=== PATIENT | male | born 1985 | race Caucasian/White ===

== ENCOUNTER 2023-09-27 14:05 | Observation (INO) ==
[2023-09-27 14:38] LABS: Basophils # (auto) 0.03 K/uL (0.00-0.20); Basophils % (auto) 0.3 %; Eosinophils # (auto) 0.05 K/uL (0.00-0.50); Eosinophils % (auto) 0.5 %; Hemoglobin 9.7 g/dl (14.0-18.0); Immature Granulocytes # (auto) 0.04 K/uL (0.01-0.20); Immature Granulocytes % (auto) 0.4 %; Lymphocytes # (auto) 1.57 K/uL (1.20-3.40); Lymphocytes % (auto) 17.3 %; Mean Corpuscular Hemoglobin 24.4 pg (25.0-34.0); Mean Corpuscular Hgb Conc 31.3 g/dL (32.0-36.0); Mean Corpuscular Volume 77.9 fL (80.0-100.0); Mean Platelet Volume 10.1 fL (9.4-12.4); Monocytes # (auto) 1.08 K/uL (0.11-0.59); Monocytes % (auto) 11.9 %; Neutrophils # (auto) 6.33 K/uL (1.40-6.50); Neutrophils % (auto) 69.6 %; Platelet Count 354 K/uL (130-400); RDW Standard Deviation 44.3 fL (36.4-46.3); Red Blood Count 3.98 M/uL (4.70-6.10)
[2023-09-27] MEDS ORDERED: LORazepam 3 MG in SYRINGE 1.5 ML IV PRN ×2 (14:50→20:04)
[2023-09-27] MEDS ORDERED: LORazepam 2 MG in SYRINGE 1 ML IV PRN ×2 (14:50→20:04)
[2023-09-27] MEDS ORDERED: LORazepam 1 MG in SYRINGE 0.5 ML IV PRN (14:50)
[2023-09-27] MEDS ORDERED: Ativan IV Alcohol Withdrawal--Active Protocol IV PRN ×2 (14:50→20:04)
[2023-09-27] MEDS: LORazepam 1 MG/1 ML SYR ED Inj Use IV STA ×2 (14:54→14:57)
[2023-09-27] MEDS: lisinopril 10 MG TAB PO STA (14:54)
[2023-09-27 14:55] LABS: Albumin Globulin Ratio 1.1 (0.9-2); Albumin Level 4.5 gm/dl (3.4-5.0); BUN Creatinine Ratio 20.9 (10-20); Calcium 9.7 mg/dl (8.6-10.3); Creatinine Clr Calc Pharmacy 106.5 ml/min; Est GFR (African American) 123.5 ml/min; Est GFR (Non-African American) 106.5 ml/min; Globulin 4.1 gm/dl (2.5-4.0); Potassium 4.1 mmol/L (3.5-5.1); Total Protein 8.6 gm/dl (6.0-8.3)
[2023-09-27 15:01] LABS: Troponin I High Sensitivity 3.2 pg/ml (0-20)
[2023-09-27] MEDS: PANTOprazole 40 MG TAB PO STA (15:10)
[2023-09-27] MEDS: MULTI-VITAMIN INFUSION 10 ML, THIAMINE HCL 100 MG, FOLIC ACID 1 MG in SODIUM CHLORIDE 0... IV ONE (15:10)
--- NOTE | 2023-09-27 15:20 | XRay Report ---
XR chest 1V portable HISTORY: 38 years-old Male Chest pain, nonspecific COMPARISON: None TECHNIQUE: AP view of the chest FINDINGS: Cardiac silhouette is upper limits of normal in size. Patchy multifocal right lung airspace opacities . No pneumothorax, pleural effusion or pulmonary edema. Lungs appear intact. IMPRESSION: Multifocal pneumonia of the right lung. ACT 112: Negative or not required by law. The above report was generated using voice recognition software. It may contain grammatical, syntax o r spelling errors. Electronically signed by: Gavino Herman M.D. 09/27/2023 3:18 PM
--- NOTE | 2023-09-27 15:40 | Electrocardiogram Report ---
Test Reason : Blood Pressure : / mmHG Vent. Rate : 109 BPM Atrial Rate : 109 BPM P-R Int : 116 ms QRS Dur : 076 ms QT Int : 320 ms P-R-T Axes : 014 025 020 degrees QTc Int : 430 ms Sinus tachycardia Nonspecific T wave abnormality Abnormal ECG No previous ECGs available Confirmed by Corey Rae ([id number]) on 09/27/2023 3:39:41 PM Referred By: REFERRED SELF Confirmed By:Corey Rae
[2023-09-27] MEDS: OPTIRAY 320 125ml IV ONE (16:39)
--- NOTE | 2023-09-27 17:03 | CT Scan Report ---
CT angio chest PE protocol CLINICAL HISTORY: multifocal PNA on XR, tachy and HTN, no fever/cough TECHNIQUE: Multidetector row helical CT of the chest was performed with angiographic protocol. Patel l and sagittal reformations were obtained. Coronal and sagittal MIPS were obtained from the axial ana a set and were submitted for review. Automated dose lowering techniques and/or adjustment according to patient size were utilized for this exam. CT DOSE: 804.17 mGy.cm Comparison: Comparison is made to chest radiograph 09/27/2023 FINDINGS: Lungs and pleura: Multifocal airspace opacities are most prominent in the right upper lobe. Heart and pericardium: Heart size is normal. No pericardial effusion. Vessels: Evaluation for pulmonary embolism is limited due to suboptimal contrast timing. No evidence of central, lobar, or segmental embolus. Mediastinum and val: Subcentimeter lymph nodes are seen. Chest wall and lower neck: Unremarkable. Abdomen: Hepatic steatosis is noted. A hiatal hernia is seen. Bones: Unremarkable. IMPRESSION: 1. Multifocal pneumonia is seen with reactive lymph nodes. 2. No evidence of pulmonary embolus. 3. Hiatal hernia. ACT 112: Negative or not required by law. Electronically signed by: Anton Segovia M.D. 09/27/2023 5:01 PM
--- NOTE | 2023-09-27 17:58 | History & Physical Report ---
Date of Service September 27, 2023 Assessment & Plan (1) Pneumonia: (2) Chest pain: (3) Alcohol withdrawal: Plan Pt is a 38yoM with PMHx significant for HTN, GERD presenting for further evaluation of right sided chest pain. Chest Pain, right RUL Pneumonia Sepsis, POA EKG noting sinus tachycardia trop x1 wnl, continue trend Tachycardic and tachypneic on admission Biofire pending Chest XRAY noting R sided multifocal pneumonia CTA chest confirming the same, no noted PE Blood Cx x2 pending lactate and procal wnl Continue Cefepime and Flagyl (pt unsure if he could have thrown up recently or passed out after drinking causing aspiration, see below) pt with amoxicillin allergy and doesn't remember the reaction Possible Alcohol withdrawal Pt notes vague Hx of alcohol use, states can be 10-12 drinks a day States last drink likely earlier this week Tachycardic, tachypneic, hypertensive on admission AWSS with active protocol with gabapentin and Ativan Continue to monitor on telemetry Continue other home meds as ordered Diet:HH DVT prophylaxis: Lovenox SQ Dispo: PCU/tele History of Present Illness Chief Complaint: Chest Pain Primary Care Provider: Ronal Sofia DO Pt is a 38yoM with PMHx significant for HTN, GERD presenting for further evaluation of right sided chest pain. History obtained from patient. and 2 children present at bedside. States that he started having right sided chest pain that would just not go away today. States he looked things up online (WebMD) and decided to come in to have it looked into further. States the nature of the pain can vary based on position. Sometimes worse with deep breaths. Denies fevers, chills or night sweats. Denies sick contacts, states the kids have not had recent illnesses. Notes a Hx of HTN for which he is on medication. States HTN runs in the family but no other significant cardiac Hx that he could think of. States that he stopped smoking when his was with his first child, about 6 years ago. States he does drink alcohol but the amount varies. Can drink quite a bit on one day (like 12 drinks) or none at all. When asked when his last drink was, he paused and thought about it for some before stating "earlier this week". Later when advised that he was in the range of 3-5 days for alcohol withdrawal symptoms, he stated that his last drink was last night or yesterday. He denies recent aspiration or N/V or passing out. Allergies Allergy/AdvReac Type Severity Reaction Status Date / Time amoxicillin Allergy Unknown "doesnt Unverified 09/27/23 17:23 remember. Was a child" Home Medications Medication Instructions Recorded Confirmed Type Vitamin 2 gummy PO PM 09/27/23 09/27/23 History lisinopril 10 mg tablet 20 mg PO PM 09/27/23 09/27/23 History loratadine 10 mg tablet (Claritin) 10 mg PO DAILY PRN Allergy Symptoms 09/27/23 09/27/23 History montelukast 10 mg tablet 10 mg PO PM 09/27/23 09/27/23 History omeprazole 20 mg tablet,delayed 20 mg PO .MID AFTERNOON 09/27/23 09/27/23 History release sertraline 50 mg tablet 50 mg PO PM 09/27/23 09/27/23 History Past Med/Surg History Problem List (Updated 09/27/23 @ 19:32 by Daisy Cherry MD) Alcohol withdrawal Chest pain Pneumonia Unwanted fertility Allergic reaction to insect sting (Acute) Allergic reaction to insect sting (Acute) Social History Smoking Status: Former smoker Feels Safe at Home: Yes Review of Systems Review of Systems: All systems reviewed & are unremarkable except as noted in Subjective Physical Exam Physical Exam: General: Alert, oriented. No acute distress Skin: No noted rashes or bruises Psych: Appropriate mood and affect Neuro: No gross deficits, slight tremor in hands with arms outstretched bilaterally HEENT: NC/AT CV: regular HR Resp: Breath sounds clear bilaterally, no increased effort of breathing. Abdomen: Soft, nontender, nondistended. Extremities: No edema in lower extremities bilaterally. Results & Data Results & Data Vital Signs (Past 12 Hours) Vital Signs Temp Pulse Pulse Resp BP BP Pulse Ox 09/27/23 15:00 96 09/27/23 15:00 107 H 26 H 166/108 H 96 09/27/23 15:00 96 09/27/23 14:29 105 H 09/27/23 14:10 36.5 C 107 H 18 191/122 H 95 O2 Del Method 09/27/23 15:00 Room Air 09/27/23 15:00 Room Air 09/27/23 15:00 Room Air 09/27/23 14:29 09/27/23 14:10 Room Air Diagnostic Findings Chest X-Ray 09/27/23 14:13 XR chest 1V portable HISTORY: 38 years-old Male Chest pain, nonspecific COMPARISON: None TECHNIQUE: AP view of the chest FINDINGS: Cardiac silhouette is upper limits of normal in size. Patchy multifocal right lung airspace opacities. No pneumothorax, pleural effusion or pulmonary edema. Lungs appear intact. IMPRESSION: Multifocal pneumonia of the right lung. ACT 112: Negative or not required by law. The above report was generated using voice recognition software. It may contain grammatical, syntax or spelling errors. Electronically signed by: Gavino Herman M.D. 09/27/2023 3:18 PM Chest CTA 09/27/23 16:21 CT angio chest PE protocol CLINICAL HISTORY: multifocal PNA on XR, tachy and HTN, no fever/cough TECHNIQUE: Multidetector row helical CT of the chest was performed with angiographic protocol. Coronal and sagittal reformations were obtained. Coronal and sagittal MIPS were obtained from the axial data set and were submitted for review. Automated dose lowering techniques and/or adjustment according to patient size were utilized for this exam. CT DOSE: 804.17 mGy.cm Comparison: Comparison is made to chest radiograph 09/27/2023 FINDINGS: Lungs and pleura: Multifocal airspace opacities are most prominent in the right upper lobe. Heart and pericardium: Heart size is normal. No pericardial effusion. Vessels: Evaluation for pulmonary embolism is limited due to suboptimal contrast timing. No evidence of central, lobar, or segmental embolus. Mediastinum and vla: Subcentimeter lymph nodes are seen. Chest wall and lower neck: Unremarkable. Abdomen: Hepatic steatosis is noted. A hiatal hernia is seen. Bones: Unremarkable. IMPRESSION: 1. Multifocal pneumonia is seen with reactive lymph nodes. 2. No evidence of pulmonary embolus. 3. Hiatal hernia. ACT 112: Negative or not required by law. Electronically signed by: Anton Segovia M.D. 09/27/2023 5:01 PM
[2023-09-27] MEDS: AMPICILLIN/SULBACTAM SOD 3,000 MG in SODIUM CHLOR 0.9% MINI-B 100 ML IV SCH (19:20)
[2023-09-27] MEDS ORDERED: GABAPENTIN 600MG ALCOHOL WITHDRAWAL LOAD PO STA (20:04)
--- NOTE | 2023-09-27 20:19 | Emergency Department Note ---
Impression & Plan Pneumonia, Chest pain, Alcohol withdrawal ED Provider Note CHIEF COMPLAINT: Chest pain HISTORY OF PRESENT ILLNESS: This 38-year-old male patient past medical history of alcohol dependency presents to the emergency department with complaints of midsternal to left-sided chest pain. The patient patient admits to drinking 10 shots of rum a night on "heavy nights." He states he has been taking lisinopril for high blood pressure, but may have missed it a few times. He does not believe he took it today. Patient is also on sertraline and omeprazole. He states he does not like to see the doctor, he "actively avoids it." He does not believe that he is in alcohol withdrawal currently, he states he normally would start drinking about 6:30 in the evening. REVIEW OF SYSTEMS: A review of systems was performed with positives and pertinent negatives listed in the history of present illness. 10 systems were reviewed and are otherwise negative. ALLERGIES: see below MEDICATIONS: see below PMH: see below SOCIAL HISTORY: see below DDx: Alcohol intoxication, withdrawal, electrolyte abnormality, dehydration, acute coronary syndrome, gastritis, peptic ulcer disease, among others. PHYSICAL EXAM: Vital signs reviewed. General: Well-appearing but anxious 38-year-old male, in no significant distress. HEENT: No scleral icterus, PERRLA, neck supple. Moist mucous membranes. Cardiovascular: Regular rate and rhythm, no extra sounds. Pulmonary: Clear to auscultation bilaterally, normal work of breathing. Abdomen: Soft, nontender, nondistended, positive bowel sounds. Musculoskeletal: Atraumatic, no peripheral edema. Neurologic: Patient awake alert and oriented x 3, speech is clear Skin: Warm, dry, no rash EMERGENCY DEPARTMENT COURSE/MDM: This patient was evaluated and appeared to be in no significant distress. IV access was obtained and laboratory work was drawn. The patient was placed on the panel monitor and noted to be tachycardic and hypertensive. He was given 2 mg of IV Ativan. IV banana bag was ordered. The patient's chest x-ray is significant for multifocal right- sided pneumonia. Patient is not presenting with pneumonia typical symptoms, therefore CT imaging of the chest was performed and confirms multifocal pneumonia. Blood cultures were obtained and the patient was medicated with initially IV Unasyn however he states he has a penicillin allergy of unknown significance. IV ceftriaxone and IV azithromycin. He was placed on the alcohol withdrawal protocol. I did discuss the case with the hospitalist service who was agreed to evaluate the patient for admission and further management. Patient is aware of the plan and agrees. MONITORING: An order for cardiac monitoring was placed and the patient is noted to be in a sinus tachycardia at 105 beats per minute. RADIOLOGY: Chest x-ray to my interpretation reveals patchy focal infiltrates on the right lung field. Otherwise refer to radiology's over read. Defer to radiology's over read. Chest CT per radiology reveals multifocal pneumonia without evidence of PE. Please see final read below. EKG: To my interpretation reveals a sinus tachycardia at 109 bpm. Nonspecific T wave abnormality. QTc of 430. No PVC, no PAC. No previous EKGs available. DISPOSITION: Admission Past Med/Surg History Problem List (Updated 09/28/23 @ 20:05 by Audra Beard MD) Alcohol withdrawal (Acute) Chest pain (Acute) Pneumonia (Acute) Unwanted fertility Allergic reaction to insect sting (Acute) Allergic reaction to insect sting (Acute) Social History Smoking Status: Never smoker Second Hand Exposure: No; Do You Dip or Chew Tobacco: No; Tobacco Cessation Education Requested by Patient: No Hx Alcohol Use: Yes Alcohol type: hard liquor Hx Substance Use: No Preferred Language: Slovak Communication Ability: Effective Controller Mechanic Required: No Beliefs That Will Affect Care: None Current Living Situation: Spouse Current Living Situation Comment: lives at home with and children Other Information That Helps Us Care for You: No Feels Safe at Home: Yes Safety Concerns: Feels Safe At This Time Assistive Devices: Glasses Allergies Allergies Allergy/AdvReac Type Severity Reaction Status Date / Time amoxicillin Allergy Unknown "doesnt Unverified 09/27/23 17:23 remember. Was a child" Home Meds Home Medications Medication Instructions Recorded Confirmed Vitamin 2 gummy PO PM 09/27/23 09/27/23 lisinopril 10 mg tablet 20 mg PO PM 09/27/23 09/27/23 loratadine 10 mg tablet (Claritin) 10 mg PO DAILY PRN Allergy Symptoms 09/27/23 09/27/23 montelukast 10 mg tablet 10 mg PO PM 09/27/23 09/27/23 omeprazole 20 mg tablet,delayed 20 mg PO .MID AFTERNOON 09/27/23 09/27/23 release sertraline 50 mg tablet 50 mg PO PM 09/27/23 09/27/23 Results & Data (ED) Vital Signs Vital Signs - 24 hr 09/27/23 14:10 09/27/23 14:29 09/27/23 15:00 Temperature 36.5 C Temperature Source Temporal Artery Scan Pulse Rate 107 H 105 H Pulse Rate [Apical] Pulse Rate from SpO2 Sensor Respiratory Rate 18 Respiratory Effort / Characteristics Non-Labored Spontaneous Respiratory Depth Normal Respiratory Pattern Regular Blood Pressure 191/122 H Blood Pressure [Right Arm] Blood Pressure Mean 145 Blood Pressure Mean [Right Arm] Pulse Oximetry 95 96 Oxygen Delivery Method Room Air Room Air Sepsis Recent Fever Within 48 Hours No Sepsis New/Unexplained Change in Mental Status N/A Sepsis Action Taken by Nursing No Action Required 09/27/23 15:00 09/27/23 15:00 09/27/23 17:00 Temperature Temperature Source Pulse Rate 98 H Pulse Rate [Apical] 107 H Pulse Rate from SpO2 Sensor 98 H Respiratory Rate 26 H 26 H Respiratory Effort / Characteristics Respiratory Depth Respiratory Pattern Blood Pressure Blood Pressure [Right Arm] 166/108 H Blood Pressure Mean Blood Pressure Mean [Right Arm] 127 Pulse Oximetry 96 96 98 Oxygen Delivery Method Room Air Room Air Sepsis Recent Fever Within 48 Hours Sepsis New/Unexplained Change in Mental Status Sepsis Action Taken by Nursing 09/27/23 17:30 09/27/23 17:41 09/27/23 17:41 Temperature Temperature Source Pulse Rate 102 H 100 H Pulse Rate [Apical] Pulse Rate from SpO2 Sensor 101 H 99 H Respiratory Rate 24 28 H Respiratory Effort / Characteristics Respiratory Depth Respiratory Pattern Blood Pressure 164/106 H Blood Pressure [Right Arm] Blood Pressure Mean 127 Blood Pressure Mean [Right Arm] Pulse Oximetry 99 96 Oxygen Delivery Method Sepsis Recent Fever Within 48 Hours Sepsis New/Unexplained Change in Mental Status Sepsis Action Taken by Detention Medications Current Medication List: was personally reviewed by me Laboratory Data Attestation: I reviewed the patient's lab results. 09/28/23 04:28 09/28/23 04:28 Lab Results 09/27/23 Range/Units 14:22 WBC 9.10 (4.8-10.8) K/ul RBC 3.98 L (4.70-6.10) M/uL Hgb 9.7 L (14.0-18.0) g/dl Hct 31.0 L (42.0-52.0) % MCV 77.9 L (80.0-100.0) fL MCH 24.4 L (25.0-34.0) pg MCHC 31.3 L (32.0-36.0) g/dL RDW Std Deviation 44.3 (36.4-46.3) fL RDW Coeff of Linus 16.0 H (11.5-14.5) % Plt Count 354 (130-400) K/uL MPV 10.1 (9.4-12.4) fL Immature Gran % (Auto) 0.4 % Neut % (Auto) 69.6 % Lymph % (Auto) 17.3 % [place] % (Auto) 11.9 % Eos % (Auto) 0.5 % Baso % (Auto) 0.3 % Neut # (Auto) 6.33 (1.40-6.50) K/uL Lymph # (Auto) 1.57 (1.20-3.40) K/uL [place] # (Auto) 1.08 H (0.11-0.59) K/uL Eos # (Auto) 0.05 (0.00-0.50) K/uL Baso # (Auto) 0.03 (0.00-0.20) K/uL Immature Gran # (Auto) 0.04 (0.01-0.20) K/uL Sodium 132 L (136-145) mmol/L Potassium 4.1 (3.5-5.1) mmol/L Chloride 97 L (98-107) mmol/L Carbon Dioxide 24 (21-32) mmol/L Anion Gap 11 (3-11) BUN 19 (6-23) mg/dl Creatinine 0.91 (0.6-1.4) mg/dl Est Cr Clr Drug Dosing 106.5 ml/min Est GFR ( Amer) 123.5 ml/min Est GFR (Non-Af Amer) 106.5 ml/min BUN/Creatinine Ratio 20.9 H (10-20) Glucose 101 H (70-99(Fasting)) mg/dl Calcium 9.7 (8.6-10.3) mg/dl Total Bilirubin 1.0 (0.2-1.0) mg/dl AST 40 H (13-39) U/L ALT 38 (7-52) U/L Alkaline Phosphatase 73 (34-104) U/L Troponin I High Sens 3.2 (0-20) pg/ml Total Protein 8.6 H (6.0-8.3) gm/dl Albumin 4.5 (3.4-5.0) gm/dl Globulin 4.1 H (2.5-4.0) gm/dl Albumin/Globulin Ratio 1.1 (0.9-2) Lipase 13 (11-82) U/L Ethyl Alcohol mg/dL < 10.0 (<10.0) mg/dl Administered Medications Acetaminophen (Acetaminophen 500 Mg Tab) 1,000 mg PO Q8H PRN PRN Reason: Pain or Fever Stop: 10/27/23 21:06 Last Admin: 09/28/23 03:25 Dose: 1,000 mg Documented By: ZULEMA Azithromycin (Azithromycin 250 Mg Tab) 500 mg PO [facility] Stop: 09/30/23 09:01 Last Admin: 09/28/23 09:05 Dose: 500 mg Documented By: SAVANNA Enoxaparin Sodium (Enoxaparin Inj 40 Mg/0.4 Ml Syr) 40 mg SQ Q24H [facility] Stop: 10/27/23 20:14 Last Admin: 09/27/23 21:45 Dose: 40 mg Documented By: ZULEMA Cefepime HCl 2,000 mg/ Syringe 20 mls @ 5 mls/min IV Q8H [facility]; Protocol Stop: 10/04/23 20:59 Last Admin: 09/28/23 13:17 Dose: 5 mls/min Documented By: Admin: 09/28/23 05:49 Dose: 5 mls/min Documented By: Admin: 09/27/23 21:07 Dose: 5 mls/min Documented By: ZULEMA Nifedipine (Nifedipine Extended Rel 30 Mg Tabcr) 60 mg PO [facility] Stop: 10/28/23 15:59 Last Admin: 09/28/23 16:20 Dose: 60 mg Documented By: BT Pantoprazole Sodium (Pantoprazole 40 Mg Tab) 40 mg PO DAILY@1200 [facility] Stop: 10/28/23 11:59 Last Admin: 09/28/23 13:16 Dose: 40 mg Documented By: BT Discontinued Medications Gabapentin (Gabapentin 100 Mg Cap) 100 mg PO Q6H [facility] Stop: 09/28/23 05:46 Last Admin: 09/28/23 05:48 Dose: 100 mg Documented By: Admin: 09/28/23 00:12 Dose: 100 mg Documented By: ZULEMA Gabapentin (Gabapentin 600 Mg Tab) 600 mg PO NOW ONE Stop: 09/27/23 20:05 Last Admin: 09/27/23 21:45 Dose: 600 mg Documented By: ZULEMA Gabapentin (Gabapentin 600 Mg Tab) 600 mg PO Q24H [facility] Stop: 09/28/23 18:01 Last Admin: 09/28/23 17:55 Dose: 600 mg Documented By: SAVANNA Multivitamins 10 ml/ Thiamine HCl 100 mg/ Folic Acid 1 mg/Sodium Chloride 1,011.2 mls @ 500 mls/hr IV .Q2H2M ONE Stop: 09/27/23 16:50 Last Infusion: 09/27/23 17:38 Dose: Infused Documented By: Admin: 09/27/23 15:10 Dose: 500 mls/hr Documented By: EDWARD Ampicillin Sodium/Sulbactam Sodium 3,000 mg/ Sodium Chloride 100 mls @ 100 mls/hr IV Q6H [facility] Stop: 10/04/23 17:14 Last Admin: 09/27/23 19:20 Dose: Not Given Documented By: EDWARD Ceftriaxone Sodium (Rocephin) 2,000 mg in 50 mls @ 100 mls/hr IV NOW STA Stop: 09/27/23 20:10 Last Infusion: 09/27/23 22:14 Dose: Infused Documented By: Admin: 09/27/23 21:44 Dose: 100 mls/hr Documented By: ZULEMA Azithromycin 500 mg/ Dextrose 255 mls @ 125 mls/hr IV NOW ONE Stop: 09/27/23 21:43 Last Infusion: 09/27/23 23:21 Dose: Infused Documented By: Admin: 09/27/23 21:06 Dose: 125 mls/hr Documented By: ZULEMA Metronidazole (Flagyl) 500 mg in 100 mls @ 100 mls/hr IV Q8H [facility]; Protocol Stop: 10/04/23 20:59 Last Infusion: 09/28/23 06:51 Dose: Infused Documented By: Admin: 09/28/23 05:49 Dose: 100 mls/hr Documented By: Infusion: 09/27/23 22:07 Dose: Infused Documented By: Admin: 09/27/23 21:07 Dose: 100 mls/hr Documented By: ZULEMA Ioversol (Optiray 320 125ml) 119 ml IV ONCE ONE Stop: 09/27/23 16:39 Last Admin: 09/27/23 16:39 Dose: 119 ml Documented By: SKY Lisinopril (Lisinopril 10 Mg Tab) 10 mg PO NOW STA Stop: 09/27/23 14:43 Last Admin: 09/27/23 14:54 Dose: 10 mg Documented By: CASTRO Lorazepam (Lorazepam 1 Mg/1 Ml Syr Ed Inj Use) 1 mg IV ONE STA Stop: 09/27/23 14:43 Last Admin: 09/27/23 14:57 Dose: Not Given Documented By: EDWARD Lorazepam (Lorazepam 1 Mg/1 Ml Syr Ed Inj Use) 2 mg IV ONE STA Stop: 09/27/23 14:50 Last Admin: 09/27/23 14:54 Dose: 2 mg Documented By: CASTRO Pantoprazole Sodium (Pantoprazole 40 Mg Tab) 40 mg PO NOW STA Stop: 09/27/23 14:50 Last Admin: 09/27/23 15:10 Dose: 40 mg Documented By: EDWARD Imaging Data Radiologist's Impression: Chest X-Ray 09/27/23 14:13 XR chest 1V portable HISTORY: 38 years-old Male Chest pain, nonspecific COMPARISON: None TECHNIQUE: AP view of the chest FINDINGS: Cardiac silhouette is upper limits of normal in size. Patchy multifocal right lung airspace opacities. No pneumothorax, pleural effusion or pulmonary edema. Lungs appear intact. IMPRESSION: Multifocal pneumonia of the right lung. ACT 112: Negative or not required by law. The above report was generated using voice recognition software. It may contain grammatical, syntax or spelling errors. Electronically signed by: Gavino Herman M.D. 09/27/2023 3:18 PM Chest CTA 09/27/23 16:21 CT angio chest PE protocol CLINICAL HISTORY: multifocal PNA on XR, tachy and HTN, no fever/cough TECHNIQUE: Multidetector row helical CT of the chest was performed with angiographic protocol. Coronal and sagittal reformations were obtained. Coronal and sagittal MIPS were obtained from the axial data set and were submitted for review. Automated dose lowering techniques and/or adjustment according to patient size were utilized for this exam. CT DOSE: 804.17 mGy.cm Comparison: Comparison is made to chest radiograph 09/27/2023 FINDINGS: Lungs and pleura: Multifocal airspace opacities are most prominent in the right upper lobe. Heart and pericardium: Heart size is normal. No pericardial effusion. Vessels: Evaluation for pulmonary embolism is limited due to suboptimal contrast timing. No evidence of central, lobar, or segmental embolus. Mediastinum and val: Subcentimeter lymph nodes are seen. Chest wall and lower neck: Unremarkable. Abdomen: Hepatic steatosis is noted. A hiatal hernia is seen. Bones: Unremarkable. IMPRESSION: 1. Multifocal pneumonia is seen with reactive lymph nodes. 2. No evidence of pulmonary embolus. 3. Hiatal hernia. ACT 112: Negative or not required by law. Electronically signed by: Anton Segovia M.D. 09/27/2023 5:01 PM Discharge Plan Visit Data Chief Complaint: Chest Pain Stated Complaint: CHEST PAINS ED Provider: Audra Beard Discharge Problem: Pneumonia, Chest pain, Alcohol withdrawal Patient Disposition: Admitted As Inpatient Discharge Instructions Interventions: ED Discharge Assessment Last Done: 09/27/23 19:56 Discharge Problem: Pneumonia Qualifiers: Pneumonia type: due to unspecified organism Laterality: right Lung location: u nspecified part of lung Qualified Code(s): J18.9 - Pneumonia, unspecified organism Chest pain Qualifiers: Chest pain type: precordial pain Qualified Code(s): R07.2 - Precordial pain Alcohol withdrawal Qualifiers: Complication of substance-induced condition: uncomplicated Qualified Code(s): F 10.930 - Alcohol use, unspecified with withdrawal, uncomplicated
[2023-09-27] MEDS: AZITHROMYCIN 500 MG in DEXTROSE 5% 250 ML IV ONE (21:06)
[2023-09-27] MEDS: metroNIDAZOLE 500 MG/100 ML BAG IV SCH (21:07)
[2023-09-27] MEDS ORDERED: ONDANSETRON INJ 2 MG/ML 2 ML VIAL IV PRN (21:07)
[2023-09-27] MEDS: CEFEPIME 2,000 MG in SYRINGE 0 ML IV SCH (21:07)
[2023-09-27] MEDS ORDERED: POLYETHYLENE (MIRALAX) 17 GM PACK PO PRN (21:07)
[2023-09-27] MEDS ORDERED: LORATADINE 10 MG TAB PO PRN (21:08)
[2023-09-27 21:21] LABS: Adenovirus PCR Not Detected (NotDetected); Bordetella parapertussis PCR Not Detected (NotDetected); Bordetella pertussis PCR Not Detected (NotDetected); Chlamydia pneumoniae PCR Not Detected (NotDetected); Coronavirus 229E PCR Not Detected (NotDetected); Coronavirus CoV-2 (COVID19)PCR Not Detected (NotDetected); Coronavirus HKU1 PCR Not Detected (NotDetected); Coronavirus NL63 PCR Not Detected (NotDetected); Coronavirus OC43PCR Not Detected (NotDetected); Human Metapneumovirus PCR Not Detected (NotDetected); Influenza A PCR Not Detected (NotDetected); Influenza B PCR Not Detected (NotDetected); Mycoplasma pneumoniae PCR Not Detected (NotDetected); Parainfluenza Virus 1 PCR Not Detected (NotDetected); Parainfluenza Virus 2 PCR Not Detected (NotDetected); Parainfluenza Virus 3 PCR Not Detected (NotDetected); Parainfluenza Virus 4 PCR Not Detected (NotDetected); Respiratory Syncytial VirusPCR Not Detected (NotDetected); Rhinovirus/Enterovirus PCR Not Detected (NotDetected)
[2023-09-27] MEDS: cefTRIAXone SODIUM 2,000 MG/50 ML BAG IV STA (21:44)
[2023-09-27] MEDS: ENOXAPARIN INJ 40 MG/0.4 ML SYR SQ SCH (21:45)
[2023-09-27] MEDS: GABAPENTIN 600 MG TAB PO ONE (21:45)
[2023-09-28] MEDS: GABAPENTIN 100 MG CAP PO SCH (00:12)
[2023-09-28] MEDS: ACETAMINOPHEN 500 MG TAB PO PRN (03:25)
[2023-09-28 04:46] LABS: Basophils # (auto) 0.02 K/uL (0.00-0.20); Basophils % (auto) 0.3 %; Eosinophils # (auto) 0.06 K/uL (0.00-0.50); Eosinophils % (auto) 0.8 %; Hematocrit (blood only) 29.5 % (42.0-52.0); Hemoglobin 9.1 g/dl (14.0-18.0); Immature Granulocytes # (auto) 0.02 K/uL (0.01-0.20); Immature Granulocytes % (auto) 0.3 %; Lymphocytes # (auto) 1.31 K/uL (1.20-3.40); Lymphocytes % (auto) 17.1 %; Mean Corpuscular Hemoglobin 24.3 pg (25.0-34.0); Mean Corpuscular Hgb Conc 30.8 g/dL (32.0-36.0); Mean Corpuscular Volume 78.7 fL (80.0-100.0); Monocytes # (auto) 0.99 K/uL (0.11-0.59); Monocytes % (auto) 12.9 %; Neutrophils # (auto) 5.25 K/uL (1.40-6.50); Neutrophils % (auto) 68.6 %; Platelet Count 286 K/uL (130-400); RDW Coefficient of Variation 16.1 % (11.5-14.5); Red Blood Count 3.75 M/uL (4.70-6.10); White Blood Count 7.65 K/ul (4.8-10.8)
[2023-09-28 05:00] LABS: BUN Creatinine Ratio 15.8 (10-20); Calcium 9.5 mg/dl (8.6-10.3); Creatinine Clr Calc Pharmacy 109.6 ml/min; Est GFR (African American) 108.9 ml/min; Est GFR (Non-African American) 93.9 ml/min; Potassium 4.1 mmol/L (3.5-5.1)
[2023-09-28 05:19] LABS: Ferritin 19.6 ng/ml (8-388)
[2023-09-28 05:20] LABS: Albumin Globulin Ratio 1.1 (0.9-2); Albumin Level 4.1 gm/dl (3.4-5.0); Bilirubin,Total 0.7 mg/dl (0.2-1.0); Globulin 3.9 gm/dl (2.5-4.0); Magnesium 2.2 mg/dl (1.7-2.4); Phosphorus 3.8 mg/dl (2.5-4.9)
[2023-09-28 05:46] LABS: Folate (Folic Acid),Ser orPlas 17.92 ng/ml (>5.38)
[2023-09-28] MEDS: AZITHROMYCIN 250 MG TAB PO SCH (09:05)
--- NOTE | 2023-09-28 13:14 | Hospitalist Progress Note ---
Date of Service September 28, 2023 Assessment & Plan (1) Pneumonia: (2) Chest pain: (3) Alcohol withdrawal: Plan Pt is a 38yoM with PMHx significant for HTN, GERD presenting for further evaluation of right sided chest pain. Chest Pain, right RUL Pneumonia Sepsis, POA Pleuritic chest pain Patient presents with right-sided pleuritic chest pain Chest x-ray showing infiltrate on right side CTA chest showing multifocal with reactive lymph node No leukocytosis Respiratory viral panel negative On cefepime. Will also add azithromycin for atypical coverage. Discussed with patient regarding getting follow-up CT chest in 6 weeks to ensure resolution of the pneumonia. Iron deficiency anemia Will hemoglobin noted to be around 9 g/dL Microcytic Ferritin of 19 with transferrin of 9%. Discussed with patient regarding the findings. I discussed with patient that he needs further GI workup as outpatient to workup for iron deficiency anemia. He verbalized understanding. Alcohol use disorder History of alcohol use disorder No signs or symptoms of withdrawal Currently on gabapentin taper Continue other home meds as ordered Diet:HH DVT prophylaxis: Lovenox SQ Dispo: PCU/tele Time spent evaluating patient, direct bedside care, chart review, placing orders, interpretation of diagnostic studies, discussion with consultants, patient, and family members, as well as other required patient management activities is 50 minutes Please note the above document was generated using voice recognition software. It may contain grammatical, syntax or spelling errors. Any formal questions or concerns about the content, text or information contained within the body of this dictation should be directly addressed to the provider for clarification Admission and Anticipated Discharge Date Admission Date: September 27, 2023 Subjective Patient seen and examined at bedside He reports improvement in chest pain. Denies cough or shortness of breath. Vital signs stable; saturating well in room air. Review of Systems Review of Systems: All systems reviewed & are unremarkable except as noted in Subjective Physical Exam Physical Exam: Constitutional: WD/WN, vitals as above, NAD, sitting up in bed, pleasant, conversing easily Respiratory: normal respiratory effort, lungs clear to auscultation, no wheeze, rales, rhonchi. Normal insp/exp effort, no accessory muscle use Cardiovascular: RRR, no murmur, no edema Vessels: no JVD or carotid bruit Chest: normal inspection of chest Abdomen: normal bowel sounds, soft, nontender, no hepatosplenomegaly Musculoskeletal: no cyanosis or clubbing, extremities motor strength 5/5 Skin: no rashes, warm and dry normal turgor Neurologic: PERRL, EOMI, accommodation nl, no face palsy, no dysarthria CN's II- XI intact bilaterally and moves all extremities Psychiatric: A+Ox3, euthymic affect Results & Data Results & Data Vital Signs (Past 12 Hours) Vital Signs Temp Pulse Pulse Resp BP Pulse Ox O2 Del Method 09/28/23 11:31 36.9 C 107 H 18 172/116 H 93 Room Air 09/28/23 08:00 Room Air 09/28/23 07:37 36.7 C 58 L 18 144/90 H 94 Room Air 09/28/23 07:34 90 09/28/23 03:42 37.7 C H 107 H 20 148/94 H 91 Room Air
[2023-09-28] MEDS: PANTOprazole 40 MG TAB PO SCH (13:16)
[2023-09-28] MEDS: NIFEdipine EXTENDED REL 30 MG TABCR PO SCH (16:20)
[2023-09-28] MEDS: GABAPENTIN 600 MG TAB PO SCH (17:55)
[2023-09-28] MEDS: SERTRALINE HCL 50 MG TABLET PO SCH (20:14)
[2023-09-28] MEDS: lisinopril 20 MG TAB PO SCH (20:14)
[2023-09-28] MEDS: MONTELUKAST SODIUM 10 MG TABLET PO SCH (20:14)
[2023-09-28] MEDS: LORazepam 1 MG in SYRINGE 0.5 ML IV PRN (20:30)
--- NOTE | 2023-09-29 12:58 | Discharge Summary ---
Date of Service September 29, 2023 Admission HPI Per Admitting Provider Pt is a 38yoM with PMHx significant for HTN, GERD presenting for further evaluation of right sided chest pain. History obtained from patient. and 2 children present at bedside. States that he started having right sided chest pain that would just not go away today. States he looked things up online ([employer]) and decided to come in to have it looked into further. States the nature of the pain can vary based on posi tion. Sometimes worse with deep breaths. Denies fevers, chills or night sweats. Denies sick contacts, states the kids have not had recent illnesses. Notes a Hx of HTN for which he is on medication. States HTN runs in the family but no other significant cardiac Hx that he could think of. States that he stopped smoking when his was with his first child, about 6 years ago. States he does drink alcohol but the amount varies. Can drink quite a bit on one day (like 12 drinks) or none at all. When asked when his last drink was, he paused and thought about it for some before stating "earlier this week". Later when advised that he was in the range of 3-5 days for alcohol withdrawal symptoms, he stated that his last drink was last night or yesterday. He denies recent aspiration or N/V or passing out. Admission Exam Per Admitting Provider General: Alert, oriented. No acute distress Skin: No noted rashes or bruises Psych: Appropriate mood and affect Neuro: No gross deficits, slight tremor in hands with arms outstretched bilaterally HEENT: NC/AT CV: regular HR Resp: Breath sounds clear bilaterally, no increased effort of breathing. Abdomen: Soft, nontender, nondistended. Extremities: No edema in lower extremities bilaterally. Principal Diagnosis RUL Pneumonia Sepsis, POA Pleuritic chest pain Iron deficiency anemia Discharge Exam Constitutional: WD/WN, vitals as above, NAD, sitting up in bed, pleasant, conversing easily Respiratory: normal respiratory effort, lungs clear to auscultation, no wheeze, rales, rhonchi. Normal insp/exp effort, no accessory muscle use Cardiovascular: RRR, no murmur, no edema Vessels: no JVD or carotid bruit Chest: normal inspection of chest Abdomen: normal bowel sounds, soft, nontender, no hepatosplenomegaly Musculoskeletal: no cyanosis or clubbing, extremities motor strength 5/5 Skin: no rashes, warm and dry normal turgor Neurologic: PERRL, EOMI, accommodation nl, no face palsy, no dysarthria CN's II- XI intact bilaterally and moves all extremities Psychiatric: A+Ox3, euthymic affect Discharge Data Allergies Allergy/AdvReac Type Severity Reaction Status Date / Time amoxicillin Allergy Unknown "doesnt Unverified 09/27/23 17:23 remember. Was a child" Consultations 09/27/23 17:10 ED Decision to Admit Stat Ordered Studies 09/27/23 16:21 CT angio chest PE protocol Stat Hospital Course (1) Pneumonia: (2) Chest pain: (3) Alcohol withdrawal: Plan Pt is a 38yoM with PMHx significant for HTN, GERD presenting for further evaluation of right sided chest pain. Chest Pain, right RUL Pneumonia Sepsis, POA Pleuritic chest pain Patient presents with right-sided pleuritic chest pain Chest x-ray showing infiltrate on right side CTA chest showing multifocal with reactive lymph node No leukocytosis Respiratory viral panel negative During the hospitalization, patient was treated with IV antibiotic for pneumonia. Review of the CT scan was done with the patient at bedside regarding the findings. I discussed with him to follow-up with his primary care doctor to obtain follow-up CT chest in 6 weeks to ensure resolution of the pneumonia. He verbalized understanding. At discharge, he was placed on oral antibiotics to complete the course Iron deficiency anemia Will hemoglobin noted to be around 9 g/dL Microcytic Ferritin of 19 with transferrin of 9%. Discussed with patient regarding the findings. I discussed with patient that he needs further GI workup as outpatient to workup for iron deficiency anemia. He verbalized understanding. Patient to follow-up with his primary care doctor Hypertension-His blood pressure during the hospitalization continued to be on higher side. Lisinopril was continued; nifedipine was added. I discussed importance of monitoring of blood pressure at home. Patient verbalized understanding. Patient to follow-up with his primary care doctor for management of Hypertension Please note the above document was generated using voice recognition software. It may contain grammatical, syntax or spelling errors. Any formal questions or concerns about the content, text or information contained within the body of this dictation should be directly addressed to the provider for clarification Total Time Total Time Spent Total Time Spent (In Minutes): 45 Total Time Includes: Examination of the Patient, Discharge Planning, Medication Reconciliation, Communication With Other Providers and Other Discharge Plan Discharge Items Patient Disposition: Home - Self-Care Reason For Visit: CHEST PAIN Discharge Diagnosis: RUL Pneumonia Sepsis, POA Pleuritic chest pain Iron deficiency anemia Activity: Resume your previous activity Non-emergency contact: Primary Care Provider Call non-emergency contact if: you have any medication questions and your symptoms worsen Follow-up/Referrals: Ronal Sofia DO [Primary Care Provider] - Diet: Regular Addtl Attending Provider Instructions: You were admitted to the hospital with pneumonia on right side of your lungs. You are treated with antibiotics during the hospitalization. To complete the antibiotic course you are prescribed following medications: 1) Cefdinir 300 mg twice a day for 5 days 2) Azithromycin 500 mg once a day As we have discussed, please follow-up with your primary care doctor to repeat CT chest in 6 weeks to ensure resolution of the pneumonia. Your blood pressure was also found to be in the higher range during the hospitalization. You are prescribed nifedipine 60 mg once a day. Please measure your blood pressure daily at home at the same time. Please have both of your feet on the ground with your arm rested before you measure the blood pressure. You were also found to have iron deficiency anemia. You are prescribed iron tablets to be taken once a day. It is very important for you to follow-up with your primary care doctor and obtain GI referral for possible endoscopy and colonoscopy to figure out the cause for the iron deficiency anemia. Pending Studies at Discharge: No Stand-Alone Forms: [facility], Smoking Cessation Medications and DC Order Prescriptions: New azithromycin 250 mg Tablet 500 mg PO QAM 1 Days Qty: 2 0RF nifedipine 60 mg tablet extended release 60 mg PO DAILY Qty: 30 0RF cefdinir 300 mg capsule 300 mg PO BID 5 Days Qty: 10 0RF ferrous sulfate [iron] 325 mg (65 mg iron) tablet 325 mg PO DAILY Qty: 60 0RF Continued lisinopril 10 mg tablet 20 mg PO PM Rx Instructions: per pt does two 10 mg tab for 20 mg dose montelukast 10 mg tablet 10 mg PO PM sertraline 50 mg tablet 50 mg PO PM Rx Instructions: per pt, he does two 25mgs for 50 mg total loratadine [Claritin] 10 mg Tablet 10 mg PO DAILY PRN (Reason: Allergy Symptoms) omeprazole 20 mg Tablet,Delayed Release (Dr/Ec) 20 mg PO .MID AFTERNOON Rx Instructions: otc Vitamin 2 gummy PO PM Discharge Orders: Discharge Order (Routine); Ordered 09/29/23 Ordered By: Yogi Burks Admission Data Admit Date/Time: 09/27/23 17:56 Attending Provider: Yogi Burks Admit Provider: Daisy Cherry Primary Care Provider: Ronal Sofia Other Providers: Daisy Cherry Other Interventions: Discharge Summary Assessment (RN) Last Done: 09/29/23 09:57
[2023-09-29] MEDS ORDERED: GABAPENTIN 400 MG CAP PO SCH (18:00)
[2023-09-30] MEDS ORDERED: GABAPENTIN 100 MG CAP PO SCH (18:00)
== END 2023-09-29 13:45 | disposition home or self-care (01) | DRG 871 ==
LOC: ED 14:05 → SUATTDRO 17:56 → INTOOBSV 17:56 → 2S 17:56